=== PATIENT | male | born 1960 | race Caucasian/White ===

== ENCOUNTER 2017-05-27 06:57 | Emergency (ER) | payer SELFPAY ==
[2017-05-27] MEDS ORDERED: Ketorolac Tromethamine 30 MG/ML VIAL ONE (07:41)
[2017-05-27 07:50] LABS: Bilirubin Negative (Negative); Blood, Urine Negative (Negative); Clarity CLEAR (Clear); Glucose, Urine (Dipstick) Negative (Negative); Leukocyte Negative (Negative); Nitrite Negative (Negative); Protein, Urine (Dipstick) Negative (Neg-Trace); Specific Gravity, Urine 1.022 (1.002-1.036); Urobilinogen 0.2 mg/dL (0.2-1.0); pH, Urine 5.5 (5.0-9.0)
[2017-05-27 08:01] LABS: #Basophils 0.1 thou/uL (0.0-0.2); #Eosinphils 0.3 thou/uL (0.0-0.7); #Lymphocytes 2.4 thou/uL (1.20-3.40); #Monocytes 0.7 thou/uL (0.11-0.59); #Neutrophils 4.1 thou/uL (1.40-6.50); %Basophils 1.2 % (0.0-1.0); %Eosinophils 3.4 % (0.0-10.0); %Lymphocytes 31.9 % (21.0-51.0); %Monocytes 8.6 % (0.0-10.0); %Neutrophils 54.9 % (42.0-75.0); Hemoglobin 12.6 g/dL (14.0-18.0); Mean Corpuscular HGB CONC 32.6 g/dL (32.0-36.0); Mean Corpuscular Hemoglobin 28.7 pg (27.0-31.0); Mean Corpuscular Volume 88.1 fl (80.0-94.0); Mean Platelet Volume 6.6 fL (7.4-10.4); Platelet Count 293 thou/uL (130-400); RBC Distribution Width 12.5 % (11.5-14.5); Red Blood Cell (RBC) Count 4.38 mill/uL (4.70-6.10); White Blood Cell (WBC) Count 7.5 thou/uL (4.8-10.8)
[2017-05-27 08:14] LABS: ALT (SGPT) 27 U/L (8-55); AST (SGOT) 24 U/L (5-34); Albumin 3.8 g/dL (3.5-5.0); Alkaline Phosphatase 77 U/L (40-150); Anion Gap 11 mmol/L (10-20); BUN (Urea Nitrogen) 13 mg/dL (8.4-25.7); Bilirubin, Total 0.2 mg/dL (0.2-1.2); Calc. Creatinine Clearance 0 mL/min (70-130); Calcium 9.2 mg/dL (7.8-10.44); Carbon Dioxide 27 mmol/L (22-29); Chloride 102 mmol/L (98-107); Estimated GFR-MDRD Greater than 90; Glucose 105 mg/dL (70-105); Lipase 41 U/L (8-78); Protein, Total 6.8 g/dL (6.0-8.3); Sodium 136 mmol/L (136-145)
--- NOTE | 2017-05-27 10:44 | CT ---
CT OF THE ABDOMEN AND PELVIS WITH IV CONTRAST: INDICATION: A 56-year-old male with left-sided flank pain ongoing for the last 2 days. The patient has been expe riencing left-sided abdominal pain for the last 1-1/2 weeks. The patient describes the pain as const ant and worse last night. The patient also reports a history of cough and pain worse with movement. FINDINGS: The lung bases are clear. There is mild fatty infiltration of the liver. The pancreas and adrenal glands are normal appearing. No focal renal lesion is evident. No free flu id is identified. There is a lobulated 7.7 x 10.5 x 6.6 cm fluid density mass seen adjacent to the distal left psoas mu sculature on image 70 of series 2 extending down to along the left external iliac vasculature. No ly mphadenopathy is evident. The bladder, rectum, and perirectal soft tissues appear within normal limi ts. There are bilateral pars defects at L5. No acute osseous abnormality is evident. IMPRESSION: 1. Lobulated fluid density mass seen along the left external iliac vasculature adjacent to the left psoas musculature is suspicious for a large lymphocele. This also may reflect a small lymphangioma o r other lymphovascular malformation. An atypical bursitis cannot be entirely excluded. Would recomm end followup MRI of the pelvis with and without contrast for additional characterization. 2. Mild fatty liver. 3. Normal appendix. 4. Bilateral pars defects at L5. CODE T POS: [facility]
[2017-05-27] MEDS ORDERED: ISOVUE-370 76%-LOCM 1 ML ONE (16:08)
== END 2017-05-27 11:20 | disposition home or self-care (01) ==
LOC: ERS 06:57
DX: I89.8 Other specified noninfective disorders of lymphatic vessels and lymph nodes (principal); B02.9 Zoster without complications; I10 Essential (primary) hypertension
CPT/HCPCS: 74177; 80053; 81003; 83690; 85025; 96374; J1885

== ENCOUNTER 2017-10-03 17:08 | Emergency (ER) | payer SELFPAY ==
[~2017-10-03 17:08] MED LIST: ISOVUE-370 76%-LOCM 1 ML ONE
[2017-10-03 17:49] LABS: Bilirubin Negative (Negative); Blood, Urine Negative (Negative); Clarity CLEAR (Clear); Glucose, Urine (Dipstick) Negative (Negative); Leukocyte Negative (Negative); Nitrite Negative (Negative); Protein, Urine (Dipstick) Negative (Neg-Trace); Specific Gravity, Urine 1.022 (1.002-1.036); Urobilinogen 0.2 mg/dL (0.2-1.0)
[2017-10-03 18:18] LABS: #Eosinphils 0.2 thou/uL (0.0-0.7); #Lymphocytes 1.1 thou/uL (1.20-3.40); #Monocytes 0.8 thou/uL (0.11-0.59); #Neutrophils 10.9 thou/uL (1.40-6.50); %Basophils 0.4 % (0.0-1.0); %Eosinophils 1.6 % (0.0-10.0); %Lymphocytes 8.5 % (21.0-51.0); %Monocytes 6.2 % (0.0-10.0); %Neutrophils 83.4 % (42.0-75.0); Mean Corpuscular HGB CONC 33.4 g/dL (32.0-36.0); Mean Corpuscular Hemoglobin 28.9 pg (27.0-31.0); Mean Corpuscular Volume 86.5 fL (78.0-98.0); Mean Platelet Volume 6.4 fL (7.4-10.4); Platelet Count 241 thou/uL (130-400); RBC Distribution Width 12.8 % (11.5-14.5); Red Blood Cell (RBC) Count 4.85 mill/uL (4.70-6.10); White Blood Cell (WBC) Count 13.1 thou/uL (4.8-10.8)
[2017-10-03] MEDS ORDERED: Ondansetron HCl/PF 4 MG/2 ML Vial ONE (18:43)
[2017-10-03 18:46] LABS: ALT (SGPT) 27 U/L (8-55); AST (SGOT) 26 U/L (5-34); Albumin 4.2 g/dL (3.5-5.0); Alkaline Phosphatase 75 U/L (40-150); Anion Gap 12 mmol/L (10-20); BUN (Urea Nitrogen) 11 mg/dL (8.4-25.7); Bilirubin, Total 0.7 mg/dL (0.2-1.2); Calc. Creatinine Clearance 0 mL/min (70-130); Calcium 9.6 mg/dL (7.8-10.44); Carbon Dioxide 26 mmol/L (22-29); Chloride 104 mmol/L (98-107); Estimated GFR-MDRD Greater than 90; Globulin 3.3 g/dL (2.4-3.5); Glucose 89 mg/dL (70-105); Lipase 18 U/L (8-78); Potassium 4.5 mmol/L (3.5-5.1); Protein, Total 7.5 g/dL (6.0-8.3); Sodium 137 mmol/L (136-145)
--- NOTE | 2017-10-03 19:40 | CT ---
CT ABDOMEN AND PELVIS WITH IV CONTRAST: HISTORY: Abdominal pain. COMPARISON: 05/27/2017 FINDINGS: The lung bases are clear. The liver, spleen, kidneys, adrenal glands, and pancreas have a normal CT appearance. The lobular multicystic mass, just anterior to the lower left psoas muscle, is unchanged in appearance from the previous exam. It measures up to 7.8 cm in oblique diameter and likely repre sents a lymphatic process. Lack of oral contrast limits evaluation of the bowel. No evidence of obstruction. An appendix is no t well delineated. There is subtle stranding in the mesentery of the right lower quadrant, with subtl e thickening of some of the distal small bowel wall. The terminal ileum is not definitely involved. IMPRESSION: 1. Subtle inflammation involving loops of small bowel in the right lower quadrant. Cause is not hebert dent. Clinical correlation regarding other signs and symptoms of regional enteritis is required. Ir ritable bowel disease must be considered with this appearance. No evidence of complication. 2. Left retroperitoneal multilocular cystic mass is stable. 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 POS: [facility]
== END 2017-10-03 20:26 | disposition home or self-care (01) ==
LOC: ERS 17:08
DX: K52.9 Noninfective gastroenteritis and colitis, unspecified (principal); Z71.6 Tobacco abuse counseling; I10 Essential (primary) hypertension
CPT/HCPCS: 36415; 74177; 80053; 81003; 83690; 85025; 96361; 96374; 99406; J2405

== ENCOUNTER 2018-01-20 11:04 | Emergency (ER) | payer SELFPAY | END 2018-01-20 13:42 | disposition home or self-care (01) | LOC: ERS 11:04 | DX: B34.9 Viral infection, unspecified (principal); R09.1 Pleurisy; I10 Essential (primary) hypertension | CPT/HCPCS: 87081; 87430; 87804; 99283 ==

== ENCOUNTER 2019-05-24 14:58 | Emergency (ER) | payer SELFPAY | END 2019-05-24 15:25 | disposition home or self-care (01) | LOC: ERS 14:58 | DX: J30.9 Allergic rhinitis, unspecified (principal); I10 Essential (primary) hypertension | CPT/HCPCS: 99281 ==

== ENCOUNTER 2022-02-03 22:04 | Emergency (ER) | payer SELFPAY ==
[2022-02-04 01:49] LABS: #Basophils 0.1 thou/uL (0.0-0.2); #Eosinphils 0.2 thou/uL (0.0-0.7); #Lymphocytes 2.3 thou/uL (1.20-3.40); #Monocytes 0.6 thou/uL (0.11-0.59); #Neutrophils 4.5 thou/uL (1.40-6.50); %Basophils 0.8 % (0.0-1.0); %Eosinophils 2.6 % (0.0-10.0); %Lymphocytes 29.6 % (21.0-51.0); %Monocytes 7.9 % (0.0-10.0); Hemoglobin 10.3 g/dL (14.0-18.0); Mean Corpuscular HGB CONC 31.2 g/dL (32.0-36.0); Mean Corpuscular Hemoglobin 24.1 pg (27.0-31.0); Mean Corpuscular Volume 77.1 fl (78.0-98.0); Mean Platelet Volume 7.4 fL (7.4-10.4); Platelet Count 242 10x3/uL (130-400); RBC Distribution Width 15.5 % (11.5-14.5); Red Blood Cell (RBC) Count 4.28 mill/uL (4.70-6.10); White Blood Cell (WBC) Count 7.6 10x3/uL (4.8-10.8)
[2022-02-04 02:10] LABS: ALT (SGPT) 18 U/L (8-55); AST (SGOT) 21 U/L (5-34); Albumin 3.7 g/dL (3.5-5.0); Alkaline Phosphatase 91 U/L (40-110); Anion Gap 14 mmol/L (10-20); BUN (Urea Nitrogen) 14 mg/dL (8.4-25.7); Bilirubin, Total 0.3 mg/dL (0.2-1.2); Calc. Creatinine Clearance 0 mL/min (70-130); Calcium 8.9 mg/dL (7.8-10.44); Carbon Dioxide 24 mmol/L (22-29); Chloride 105 mmol/L (98-107); Estimated GFR 100; Globulin 3.4 g/dL (2.4-3.5); Glucose 101 mg/dL (70-105); Potassium 3.6 mmol/L (3.5-5.1); Protein, Total 7.1 g/dL (6.0-8.3); Sodium 139 mmol/L (136-145)
[2022-02-04 03:55] LABS: Bilirubin Negative (Negative); Blood, Urine Negative (Negative); Clarity Extra Turbid (Clear); Glucose, Urine (Dipstick) Normal (Negative); Ketone, Urine Trace mg/dL (Negative); Leukocyte Negative Leu/uL (Negative); Nitrite Negative (Negative); Protein, Urine (Dipstick) 20 mg/dL (Neg-Trace); Specific Gravity, Urine 1.029 (1.002-1.036); Urobilinogen Normal mg/dL (Less than 2); pH, Urine 5.5 (5.0-9.0)
[2022-02-04] MEDS ORDERED: Iopamidol-370 76% 500 ML 1 ML ONE (11:31)
== END 2022-02-04 04:24 | disposition home or self-care (01) ==
LOC: ERS 22:04
DX: K68.9 Other disorders of retroperitoneum (principal)
CPT/HCPCS: 36415; 74177; 80053; 81003; 85025; Q9967

== ENCOUNTER 2022-02-24 10:38 | Emergency (ER) | payer SELFPAY ==
[2022-02-24 12:55] LABS: SARS-CoV-2 NAA Rapid Test Not Detected (NotDetected)
== END 2022-02-24 13:40 | disposition home or self-care (01) ==
LOC: ERS 10:38
DX: J02.9 Acute pharyngitis, unspecified (principal); J20.9 Acute bronchitis, unspecified; M79.10 Myalgia, unspecified site; Z20.822 Contact with and (suspected) exposure to COVID-19
CPT/HCPCS: 71045

== ENCOUNTER 2022-03-04 15:11 | Emergency (ER) | payer OTHER, SELFPAY | END 2022-03-04 18:42 | disposition home or self-care (01) | LOC: ERS 15:11 | DX: S22.42XA Multiple fractures of ribs, left side, initial encounter for closed fracture (principal); J06.9 Acute upper respiratory infection, unspecified; I10 Essential (primary) hypertension; W01.0XXA Fall on same level from slipping, tripping and stumbling without subsequent striking against object, initial encounter ==

== ENCOUNTER 2022-12-17 16:51 | Emergency (ER) | payer SELFPAY | END 2022-12-17 17:57 | disposition home or self-care (01) | LOC: ERS 16:51 | DX: J02.9 Acute pharyngitis, unspecified (principal); I10 Essential (primary) hypertension | CPT/HCPCS: 87081; 87430; 99283 ==

== ENCOUNTER 2024-02-12 14:01 | Emergency (ER) | payer SELFPAY | END 2024-02-12 15:58 | disposition home or self-care (01) | LOC: ERS 14:01 | DX: R05.1 Acute cough (principal); R06.2 Wheezing; I10 Essential (primary) hypertension | CPT/HCPCS: 99284 ==